=== PATIENT | female | born 2000 | race Caucasian/White ===

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

== ENCOUNTER 2019-07-10 10:12 | Inpatient (IN) | payer OTHER, MEDICAID ==
[~2019-07-10] VITALS: Ht 154.9 cm; Wt 40.4 kg
[2019-07-10 10:22] VITALS: Ht 154.9 cm; Wt 40.4 kg
--- NOTE | 2019-07-10 10:22 | NUR ---
PT PRESENTS TO THE ED WITH C/C OF ABDOMINAL PAIN X1 WEEK. PT SAYS THE PAIN IS INTERMITTENT AND WORSENED TODAY. PT DENIES PAIN WITH SEX OR URINATION. REPORTS NEW, ABNORMAL DISCHARGE X2 MONTHS. PT STATES "MY DISCHARGE SMELLS BAD AND IS SOMETIMES WHITE AND THICK OR NEON YELLOW." PT REPORTS HAVING CONSTIPATION, STATES "WHEN I DO POOP THOUGH, ITS DIARRHEA." PT DENIES ABNORMAL URINARY SYMPTOMS. PT DENIES FEELING ITCHY. PT REPORTS SHE'S BEEN NAUSEOUS BUT NO VOMITTING. PT IS AWAKE, AAOX4, RESP E/U, NAD NOTED. CALL LIGHT IN REACH.
--- NOTE | 2019-07-10 11:24 | NUR ---
PT MEDICATED PER MD ORDER. PT VERBALIZED UNDERSTANDING OF MEDICATIONS PRIOR TO ADMINISTRATION. CALL LIGHT IN REACH. BOYFRIEND AT BEDSIDE.
--- NOTE | 2019-07-10 11:30 | NUR ---
X-RAY AT BEDSIDE.
[2019-07-10 11:39] LABS: BASOPHIL % 0.1 % (0-2); PLATELET COUNT 287 x10^3mcL (130-400)
[2019-07-10 11:40] LABS: RED CELL DISTRIBUTION WIDTH 15.3 % (11.5-14.5)
[2019-07-10 11:44] LABS: CALCIUM 9.2 mg/dL (8.5-10.1); CARBON DIOXIDE 23.5 mmol/L (21-32); CHLORIDE SERUM 103 mmol/L (98-107); CREATININE SERUM 0.8 mg/dL (0.6-1.0); GFR1 > 60 mL/min; GLUCOSE SERUM 88 mg/dL (74-106); POTASSIUM SERUM 3.6 mmol/L (3.5-5.1); SODIUM SERUM 142 mmol/L (136-145)
[2019-07-10 11:55] LABS: FREE T4 1.19 ng/dL (0.76-1.46); FREE THYROXINE INDEX 3.1 ug/dL (1.4-4.5); T4(THYROXINE) 9.5 ug/dL (4.7-13.3)
[2019-07-10 11:57] LABS: ALBUMIN 4.7 g/dL (3.4-5.0); ALKALINE PHOSPHATASE 57 U/L (46-116); ALT/SGPT 8 U/L (14-59); AST/SGOT 11 U/L (15-37); BILIRUBIN TOTAL 0.6 mg/dL (0.20-1.00); T3 TOTAL 1.04 ng/mL; TOTAL PROTEIN, SERUM 7.8 g/dL (6.4-8.2)
[2019-07-10 12:06] LABS: C REACTIVE PROTEIN 0.2 mg/dL (<=0.9)
--- NOTE | 2019-07-10 12:17 | NUR ---
PT REPORTS FEELING NAUSEOUS BUT DOES NOT WANT NAUSEA MEDICATION. PT'S HR IS 126 MD MADE AWARE.
--- NOTE | 2019-07-10 12:32 | NUR ---
PT MEDICATED PER MD ORDER. PT VERBALIZED UNDERSTANDING FOR NEED OF SECOND IV BOLUS.
--- NOTE | 2019-07-10 12:40 | NUR ---
PT TAKEN TO CT, AWAKE, AAOX4, NAD NOTED.
[2019-07-10 12:47] LABS: ERYTHROCYTE SED RATE 13 mm/hr (0-20)
--- NOTE | 2019-07-10 12:56 | NUR ---
PT RETURNED FROM CT. AMBULATED TO RESTROOM WITH STEADY GAIT.
--- NOTE | 2019-07-10 14:24 | NUR ---
C/O NAUSEA MEDICATED WITH ZOFRAN
--- NOTE | 2019-07-10 14:57 | NUR ---
PT EXPERIENCING INTENSE "BURNING" ABDOMINAL PAIN. DENIES EVER HAVING FELT THESE SYMPTOMS FROM HER GASTRITIS. MD MADE AWARE, ORDER FOR GI COCKTAIL.
--- NOTE | 2019-07-10 15:51 | NUR ---
RECEIVED PT VIA W/C FROM E/D, ACCOMPANIED BY RN, TRANSPORTER, AND PT'S FAMILY MEMBERS. PT A/A/O X 4, CALM, COOPERATIVE; C/O INTERMITTENT THROBBING H/A 5/10. AMBULATORY, NO GAIT OR BALANCE IMPAIRMENT NOTED WHEN WALKING FROM W/C TO BED. ON TELE # 1, HR 116, ST, DENIES CHEST PAIN OR DISCOMFORT AT THIS TIME. SCD BY BEDSIDE. NO ACUTE RESPIRATORY DISTRESS NOTED. ABD SOFT, FLAT, TENDERNESS UPON PALPATION, NORMOACTIVE BOWEL SOUNDS X 4 QUADS, LAST BM 07/07/19, DIARRHEA; STATED HAD WT LOSS > 10# IN 1 MO; POOR PO INTAKE > 3 DAYS. VOIDS FREELY, DENIES DYSURIA; HAS FOUL-SMELLING VAGINAL D/C, THICK WHITE/NEON YELLOW. IV SITES RAC 20G CDI AND RH 22G CDI. ORIENTED PT AND FAMILY MEMBERS TO ROOM, BED CONTROLS, CALL LIGHT SYSTEM. SIDE RAILS UP X 2, BED IN LOW POSITION. WILL ENDORSE ANGELICA TRACY.
[2019-07-10 15:59] LABS: UA SPECIFIC GRAVITY >=1.030 (1.005-1.035); urine erythrocyte NEGATIVE (NEGATIVE)
[2019-07-10 16:08] LABS: microscopic required? YES
[2019-07-10 16:11] LABS: AMPHETAMINE QUAL UR NONE DETECTED (See below)
[2019-07-10 16:14] VITALS: BP 109/70
[2019-07-10 16:15] LABS: MAGNESIUM 1.9 mg/dL (1.8-2.4); PHOSPHOROUS 3.1 mg/dL (2.5-4.9)
--- NOTE | 2019-07-10 17:26 | NUR ---
REMAINS IN STABLE CONDITION AT THIS TIME. WILL CONTINUE TO MONITOR.
--- NOTE | 2019-07-10 19:15 | NUR ---
RECEIVED PT IN BED RETSING WITH FAMILY AT BEDSIDE. NO DISTRESS NOTED. C/O ABDOMINAL PAIN /10 BUT ITS TOLERABLE. IV ISTE PATENT AND INTACT. ABDOMEN SOFT AND ROUND. BOWEL ACTIVE. C/O ALSO OF LOOSE STOOL. BED IN LOWEST POSITION,CALL LIGHT WITHIN REACH. WILL CONTINUE TO MONITOR.
[2019-07-10 20:35] VITALS: BP 107/71
--- NOTE | 2019-07-10 22:30 | NUR ---
DR CRAFT CAME TO SEE THE PT AND DID INTERNAL EXAM. NEW ORDERS GIVEN AND CARRIED OUT.WILL CONTINUE TO MONITOR.
--- NOTE | 2019-07-11 04:31 | NUR ---
PT APPEARS TO BE SLEEPING. NO SOB NOTED. NO INDICATION OF PAIN. CALL LIGHT WITHIN REACH. WILL CONTINUE TO MONITOR.
[2019-07-11 07:01] LABS: CALCIUM 8.1 mg/dL (8.5-10.1); CARBON DIOXIDE 20.6 mmol/L (21-32); CHLORIDE SERUM 107 mmol/L (98-107); CREATININE SERUM 0.6 mg/dL (0.6-1.0); GFR1 > 60 mL/min; GLUCOSE SERUM 77 mg/dL (74-106); MAGNESIUM 1.7 mg/dL (1.8-2.4); PHOSPHOROUS 2.5 mg/dL (2.5-4.9); POTASSIUM SERUM 3.7 mmol/L (3.5-5.1); SODIUM SERUM 141 mmol/L (136-145)
--- NOTE | 2019-07-11 07:30 | NUR ---
RECECIVED PATIENT AWAKE/ALERT IN BED, DENIES PAIN AT THIS TIME, C/O NAUSEA. WILL MEDICATE PATIENT FOR NAUSEA W/ ZOFRAN. TELE #1 ST W/ HR 110. IV TO LAC INTACT AND INFUSING WELL; IV TO RH INTACT AND SL NOTED. CALL LIGHT WITHIN REACH.
--- NOTE | 2019-07-11 07:32 | NUR ---
CARE ENDORSED TO DAY NURSE
[2019-07-11 08:11] VITALS: BP 94/61
[2019-07-11 08:12] LABS: BASOPHIL % 0.5 % (0-2); PLATELET COUNT 229 x10^3mcL (130-400)
[2019-07-11 08:14] LABS: RED CELL DISTRIBUTION WIDTH 15.3 % (11.5-14.5)
[2019-07-11] MEDS ORDERED: PRO2.5 PO (08:47)
[2019-07-11] MEDS ORDERED: FLA500 PO (08:50)
--- NOTE | 2019-07-11 10:18 | NUR ---
DR. HERNANDEZ ROUND WITH RESIDENT DISCUSS POC WITH PATIENT AND MOTHER AT BEDSIDE, PLAN FOR US ENDOVAGINAL PATIENT REFUSED, DR. HERNANDEZ DISCUSS HOW IMPORTANT TO DO THIS TEST VS ABDOMINAL US. PATIENT WILL SIGN THE REFUSAL. PLAN DISCHARGE HOME WITH ABX.
[2019-07-11] MEDS ORDERED: ZOF4 PO (11:00)
[2019-07-11 11:16] VITALS: BP 94/61
--- NOTE | 2019-07-11 12:17 | NUR ---
DISCHARGE INSTRUCTION AND PRESCRIPTION EXPLAINED TO PATIENT, INSTRUCT PATIENT TO F/U WITH PCP SCHEDULE, PATIENT VERBALIZE UNDERSTAND. NO FURTHER QUESTIONS. TELE #1 RETURN TO [place]. ALL BELONGINGS WITH PATIENT, MELANY TYLER WALK PATIENT TO LOBBY.
[2019-07-11 12:18] VITALS: BP 98/59
== END 2019-07-11 12:31 | disposition home or self-care (01) | DRG 720 ==
LOC: ED 10:12 → DU 14:46
PROVIDERS: Specialist; ADMIT General Practice
DX: A41.9 Sepsis, unspecified organism (principal); E86.0 Dehydration; N73.9 Female pelvic inflammatory disease, unspecified; N76.0 Acute vaginitis; R00.0 Tachycardia, unspecified; N94.6 Dysmenorrhea, unspecified; Z68.1 Body mass index [BMI] 19.9 or less, adult
CPT/HCPCS: 84439; 87491; 87591; G0378; J0694; J0696; J1885; J2405; J3490; J7030; J7060; Q0092; Q9967

== ENCOUNTER 2020-07-30 13:11 | Emergency (ER) | payer OTHER ==
[~2020-07-30] VITALS: Ht 154.9 cm; Wt 38.6 kg
[~2020-07-30 13:11] MED LIST: FLA500 PO; PRO2.5 PO; ZOF4 PO
[2020-07-30 14:03] LABS: UA SPECIFIC GRAVITY 1.025 (1.005-1.035); microscopic required? YES; urine erythrocyte TRACE (NEGATIVE)
[2020-07-30 15:40] VITALS: BP 100/64
== END 2020-07-30 15:40 | disposition home or self-care (01) ==
LOC: ED 13:11
PROVIDERS: Emergency Medicine
DX: N76.0 Acute vaginitis (principal); K21.9 Gastro-esophageal reflux disease without esophagitis
CPT/HCPCS: 87491; 87591; J0696; J1885; Q0092